=== PATIENT | male | born 1995 | race Two or more races ===

== ENCOUNTER 2022-02-24 12:56 | Emergency (ER) | payer OTHER ==
[~2022-02-24] VITALS: Ht 180.3 cm; Wt 68.0 kg
[2022-02-24] MEDS ORDERED: PEPCID AC20 MG PO (22:24)
[2022-02-24] MEDS ORDERED: ONDANSETRON ODT8 MG PO (22:24)
== END 2022-02-24 23:20 | disposition home or self-care (01) ==
LOC: ER 12:56
DX: R10.13 Epigastric pain (principal); R11.10 Vomiting, unspecified; E86.0 Dehydration; Z20.822 Contact with and (suspected) exposure to COVID-19; Z88.8 Allergy status to other drugs, medicaments and biological substances